=== PATIENT | female | born 1945 | race Caucasian/White ===

== ENCOUNTER 2021-12-02 07:22 | Emergency (ER) | payer SELFPAY ==
[~2021-12-02] VITALS: Ht 165.1 cm; Wt 79.4 kg
[2021-12-02 07:22] VITALS: BP 0/0
--- NOTE | 2021-12-02 07:22 | NUR ---
PATIENT WAS BROUGHT IN FROM [facility]ULSEL[facility] AND [facility] WHERE CPR AND MANUAL VENTILATION WAS STARTED AT 0710. REFER TO CODE BLUE SHEET
[2021-12-02] MEDS ORDERED: EPINEPHRINE (1:10,000) SYRINGE 1 MG/10 ML DISP.SYRIN IVP ONE (07:26)
[2021-12-02] MEDS ORDERED: DEXTROSE 50%-WATER 50 ML VIAL IV ONE (07:26)
[2021-12-02] MEDS ORDERED: SODIUM BICARBONATE SYR 50 MEQ/50 ML DISP.SYRIN IV ONE (07:26)
[2021-12-02] MEDS ORDERED: NALOXONE PREFILLED SYRINGE 2 MG/2 ML SYRINGE ONE (07:42)
--- NOTE | 2021-12-02 08:19 | NUR ---
SPOKE TO KAYY Cruz OF [facility] ([phone]) CASE # [id number] WILL CALL BACK FOR FOLLOW UP ON [facility]S OFFICE.
--- NOTE | 2021-12-02 09:07 | NUR ---
[facility] CALLED. #[phone]. WILL SEND A DISPATCH. NO ETA GIVEN.
--- NOTE | 2021-12-02 10:06 | NUR ---
[facility] [address] IN ER.
--- NOTE | 2021-12-02 10:10 | NUR ---
[facility] OFFICERS AT THE [facility] INVESTIGATION
--- NOTE | 2021-12-02 10:24 | NUR ---
[facility] OFFICERS KURT [id number] AND EVITA [id number] OF [place] [employer] STATED THAT THEY WILL CALL [facility] [employer]S OFFICE AND WILL CALL US AND PROVIDE THE CASE #.
== END 2021-12-02 09:10 ==
LOC: ER 07:25 → EDBD 07:25 → ER 09:10
DX: I46.9 Cardiac arrest, cause unspecified (principal)
CPT/HCPCS: 99285; 92950; 31500; J0171; J3490; J2310